=== PATIENT | male | born 1995 | race Caucasian/White ===

== ENCOUNTER → 2017-05-05 | Outpatient (REF) ==
[2016-03-06 04:55] VITALS: BP 115/62
[~2017-05-05] MED LIST: CEPHALEXIN250 MG/5 M PO; CHEWABLE MULTI1 EACH PO; LEVOTHYROXIN0.112 MG PO; PYRIDIUM100 M1 PO; SYNTHROID0.125 MG/T PO; VITAMIN D32000 UNIT PO
== END ==
LOC: LAB 07:35
DX: Q90.9 Down syndrome, unspecified (principal)

== ENCOUNTER 2019-08-21 10:06 | Outpatient (RCR) | payer MEDICARE ==
[2016-03-06 04:55] VITALS: BP 115/62
== END 2019-11-19 | disposition still patient (30) ==
LOC: SPEECH
DX: F80.9 Developmental disorder of speech and language, unspecified (principal)

== ENCOUNTER 2020-06-11 11:06 | Outpatient (RCR) | payer MEDICARE, BC ==
[2016-03-06 04:55] VITALS: BP 115/62
== END 2020-06-11 12:00 ==
LOC: PT 11:06
DX: Z02.1 Encounter for pre-employment examination (principal); Z20.828 Contact with and (suspected) exposure to other viral communicable diseases

== ENCOUNTER 2021-12-27 22:29 | Emergency (ER) | payer MEDICARE, BC, MEDICAID ==
[~2021-12-27] VITALS: Wt 75.0 kg
[2021-12-27] MEDS ORDERED: ESCITALOPRAM10 MG PO (22:42)
[2021-12-27] MEDS ORDERED: LEVOTHYROXINE125 MCG PO (22:42)
[2021-12-27] MEDS ORDERED: NORCO 325 MG-51 TA1 PO (23:42)
[2021-12-27] MEDS ORDERED: HYDROXYZINE HCL25 M1 PO (23:42)
[2021-12-27] MEDS ORDERED: CEPHALEXIN250 MG/5 M PO (23:53)
[2021-12-28 00:10] VITALS: BP 142/78
== END 2021-12-28 00:10 | disposition home or self-care (01) ==
LOC: ED 22:29
DX: S61.302A Unspecified open wound of right middle finger with damage to nail, initial encounter (principal); Q90.9 Down syndrome, unspecified; R31.0 Gross hematuria; X58.XXXA Exposure to other specified factors, initial encounter; Y93.89 Activity, other specified
CPT/HCPCS: Q0177

== ENCOUNTER → 2022-02-03 | Outpatient (CLI) | payer MEDICARE, BC, MEDICAID ==
[~2022-02-03] MED LIST changes: +ESCITALOPRAM10 MG PO; +HYDROXYZINE HCL25 M1 PO; +LEVOTHYROXINE125 MCG PO; +NORCO 325 MG-51 TA1 PO
[2022-02-03 16:17] LABS: ALBUMIN 4.5 g/dL (3.5-5.0); POTASSIUM 4.6 mmol/L (3.5-5.1)
[2022-02-03 16:19] LABS: CALCIUM 10.2 mg/dL (8.3-10.5)
[2022-02-03 16:20] LABS: TOTAL PROTEIN 7.8 g/dL (6.4-8.3)
[2022-02-03 16:22] LABS: TOTAL BILIRUBIN 0.4 mg/dL (0.2-1.2)
[2022-02-03 16:44] LABS: BASO # 0.09 K/mm3 (0.02-0.10); EOS # 0.06 K/mm3 (0.04-0.40); EOS % 1.4 % (0.0-4.0); HEMATOCRIT 48.5 % (42.0-52.0); HEMOGLOBIN 16.8 g/dL (13.5-18.0); LYMPH# 1.25 K/mm3 (1.50-4.00); MEAN CELL VOLUME 94 fl (78-100); MEAN CORPUSCULAR HEMOGLOBIN 33 pg (27-31); MEAN CORPUSCULAR HGB CONC 35 g/dL (33-37); MEAN PLATELET VOLUME 9.2 fl (7.4-10.4); MONO # 0.52 K/mm3 (0.20-0.80); NEU # 2.19 K/mm3 (1.40-6.50); PLATELET COUNT 260 K/mm3 (130-400); RED BLOOD COUNT 5.16 M/mm3 (4.20-5.60); RED CELL DISTRIBUTION WIDTH 12.1 % (11.5-14.5); WHITE BLOOD COUNT 4.1 K/mm3 (4.8-10.8)
[2022-02-03 18:05] LABS: ERYTHROCYTE SEDIMENTATION RATE 7 mm/hr (0-15)
[2022-02-03 22:19] LABS: T3 FREE 2.4 pg/mL (1.7-3.7)
== END ==
LOC: LAB 15:47
PROVIDERS: Internal Medicine
DX: Q90.9 Down syndrome, unspecified (principal); E07.9 Disorder of thyroid, unspecified; K90.9 Intestinal malabsorption, unspecified; F42.9 Obsessive-compulsive disorder, unspecified; F91.9 Conduct disorder, unspecified; K21.9 Gastro-esophageal reflux disease without esophagitis

== ENCOUNTER → 2022-03-20 | Outpatient (CLI) | payer MEDICARE, BC, MEDICAID ==
[2022-03-20 17:12] LABS: POTASSIUM 3.8 mmol/L (3.5-5.1)
[2022-03-20 17:14] LABS: CALCIUM 9.2 mg/dL (8.3-10.5)
[2022-03-20 17:17] LABS: TOTAL BILIRUBIN 0.5 mg/dL (0.2-1.2)
== END ==
LOC: LAB 16:03
PROVIDERS: Internal Medicine
DX: Q90.9 Down syndrome, unspecified (principal); R51.9 Headache, unspecified

== ENCOUNTER → 2022-04-10 | Outpatient (CLI) | payer MEDICARE, BC, MEDICAID | LOC: RAD 16:36 | DX: Q90.9 Down syndrome, unspecified (principal) ==

== ENCOUNTER 2022-05-14 13:55 | Outpatient (RCR) | payer MEDICARE, BC, MEDICAID | END 2022-06-03 | disposition home or self-care (01) | LOC: PT | DX: M62.81 Muscle weakness (generalized) (principal) ==

== ENCOUNTER → 2022-06-06 | Outpatient (CLI) | payer MEDICARE, BC, MEDICAID | LOC: LAB 11:03 | DX: R19.7 Diarrhea, unspecified (principal); B34.9 Viral infection, unspecified; R30.9 Painful micturition, unspecified; Z20.822 Contact with and (suspected) exposure to COVID-19 ==

== ENCOUNTER → 2022-06-23 | Outpatient (CLI) | payer MEDICARE, BC, MEDICAID | LOC: LAB 11:59 | DX: J01.90 Acute sinusitis, unspecified (principal); H10.33 Unspecified acute conjunctivitis, bilateral; Z20.822 Contact with and (suspected) exposure to COVID-19 ==

== ENCOUNTER → 2022-08-25 | Outpatient (CLI) | payer MEDICARE, BC, MEDICAID ==
[2022-08-25 15:47] LABS: BASO # 0.05 K/mm3 (0.02-0.10); EOS # 0.06 K/mm3 (0.04-0.40); EOS % 1.8 % (0.0-4.0); HEMATOCRIT 46.7 % (42.0-52.0); HEMOGLOBIN 15.7 g/dL (13.5-18.0); LYMPH# 1.05 K/mm3 (1.50-4.00); MEAN CELL VOLUME 95 fl (78-100); MEAN CORPUSCULAR HEMOGLOBIN 32 pg (27-31); MEAN CORPUSCULAR HGB CONC 34 g/dL (33-37); MEAN PLATELET VOLUME 9.4 fl (7.4-10.4); MONO # 0.38 K/mm3 (0.20-0.80); NEU # 1.83 K/mm3 (1.40-6.50); PLATELET COUNT 216 K/mm3 (130-400); RED BLOOD COUNT 4.92 M/mm3 (4.20-5.60); WHITE BLOOD COUNT 3.4 K/mm3 (4.8-10.8)
[2022-08-25 15:52] LABS: POTASSIUM 3.9 mmol/L (3.5-5.1)
[2022-08-25 15:53] LABS: ALBUMIN 4.2 g/dL (3.5-5.0)
[2022-08-25 15:54] LABS: CALCIUM 9.4 mg/dL (8.3-10.5)
[2022-08-25 15:55] LABS: TOTAL PROTEIN 7.3 g/dL (6.4-8.3)
[2022-08-25 15:57] LABS: TOTAL BILIRUBIN 0.5 mg/dL (0.2-1.2)
[2022-08-25 21:35] LABS: LUTENIZING HORMONE 2.7 mIU/mL (0.6-12.1); PROLACTIN AMS 58.7 ng/mL (3.5-19.4)
== END ==
LOC: LAB 15:18
PROVIDERS: Internal Medicine
DX: K90.9 Intestinal malabsorption, unspecified (principal); E55.9 Vitamin D deficiency, unspecified; F52.21 Male erectile disorder; E78.2 Mixed hyperlipidemia; E07.9 Disorder of thyroid, unspecified

== ENCOUNTER → 2022-10-07 | Outpatient (CLI) | payer MEDICARE, BC, MEDICAID ==
[~2022-10-07] MED LIST changes: +AMOXICILLIN AND1 TA2 PO; +CLONAZEPAM0.5 M1 PO; +OMEPRAZOLE40 MG PO
== END ==
LOC: LAB 11:24
DX: R30.9 Painful micturition, unspecified (principal)

== ENCOUNTER → 2022-10-30 | Outpatient (CLI) | payer MEDICARE, BC, MEDICAID ==
[2022-10-30 15:48] LABS: URINE APPEARANCE CLEAR; URINE COLOR YELLOW
[2022-10-30 15:49] LABS: URINE BILIRUBIN NEGATIVE (NEGATIVE); URINE BLOOD NEGATIVE (NEGATIVE); URINE GLUCOSE NEGATIVE (NEGATIVE); URINE KETONE NEGATIVE (NEGATIVE); URINE LEUKOCYTE ESTERASE NEGATIVE (NEGATIVE); URINE NITRATE NEGATIVE (NEGATIVE); URINE PROTEIN(semi-quant) NEGATIVE (NEGATIVE); URINE UROBILINOGEN NORMAL (NORMAL); URINE WBC 0-1 /hpf (0-3)
== END ==
LOC: LAB 15:25
PROVIDERS: Internal Medicine
DX: N39.0 Urinary tract infection, site not specified (principal)

== ENCOUNTER 2023-10-25 08:12 | Emergency (ER) | payer MEDICARE, MEDICAID ==
[~2023-10-25] VITALS: Ht 157.5 cm; Wt 73.6 kg
[2023-10-25 08:55] VITALS: BP 129/79
== END 2023-10-25 10:35 | disposition home or self-care (01) ==
LOC: ED 08:12
DX: R45.6 Violent behavior (principal)

== ENCOUNTER → 2023-11-10 | Outpatient (CLI) | payer MEDICARE, MEDICAID ==
[2023-11-10 12:30] LABS: URINE APPEARANCE CLEAR (CLEAR); URINE COLOR YELLOW (YELLOW)
[2023-11-10 12:32] LABS: PH-URINE 6.5 (5.0 - 8.0); URINE BILIRUBIN NEGATIVE (NEGATIVE); URINE BLOOD NEGATIVE (NEGATIVE); URINE GLUCOSE NEGATIVE (NEGATIVE); URINE KETONE NEGATIVE (NEGATIVE); URINE LEUKOCYTE ESTERASE NEGATIVE (NEGATIVE); URINE NITRATE NEGATIVE (NEGATIVE); URINE PROTEIN(semi-quant) NEGATIVE (NEGATIVE); URINE WBC 0-1 /hpf (0-3)
== END ==
LOC: LAB 11:55
PROVIDERS: Nurse Practitioner Family
DX: N48.89 Other specified disorders of penis (principal)

== ENCOUNTER → 2023-11-30 | Outpatient (CLI) | payer MEDICARE | LOC: LAB 17:03 | DX: N39.0 Urinary tract infection, site not specified (principal) ==

== ENCOUNTER → 2023-11-30 | Outpatient (CLI) | payer MEDICARE ==
[2023-11-30 17:34] LABS: CALCIUM 9.5 mg/dL (8.3-10.5)
== END ==
LOC: LAB 17:15
PROVIDERS: Internal Medicine
DX: E07.9 Disorder of thyroid, unspecified (principal)

== ENCOUNTER → 2023-12-01 | Outpatient (CLI) | payer MEDICARE | LOC: RAD 11:19 | DX: N13.30 Unspecified hydronephrosis (principal); N39.0 Urinary tract infection, site not specified ==

== ENCOUNTER → 2024-09-20 | Outpatient (CLI) | payer MEDICARE, MEDICAID ==
[2024-09-20 17:25] LABS: BASO # 0.04 K/mm3 (0.02-0.10); EOS # 0.06 K/mm3 (0.04-0.40); EOS % 1.4 % (0.0-4.0); HEMATOCRIT 47.5 % (42.0-52.0); HEMOGLOBIN 16.4 g/dL (13.5-18.0); LYMPH# 1.16 K/mm3 (1.50-4.00); MEAN CELL VOLUME 93 fl (78-100); MEAN CORPUSCULAR HEMOGLOBIN 32 pg (27-31); MEAN CORPUSCULAR HGB CONC 35 g/dL (33-37); MEAN PLATELET VOLUME 9.5 fl (7.4-10.4); MONO # 0.46 K/mm3 (0.20-0.80); NEU # 2.53 K/mm3 (1.40-6.50); PLATELET COUNT 246 K/mm3 (130-400); RED BLOOD COUNT 5.11 M/mm3 (4.20-5.60); RED CELL DISTRIBUTION WIDTH 12.2 % (11.5-14.5); WHITE BLOOD COUNT 4.3 K/mm3 (4.8-10.8)
[2024-09-20 17:32] LABS: ALBUMIN 4.2 g/dL (3.5-5.0)
[2024-09-20 17:33] LABS: CALCIUM 9.6 mg/dL (8.3-10.5)
[2024-09-20 17:35] LABS: TOTAL PROTEIN 7.6 g/dL (6.4-8.3)
[2024-09-20 17:37] LABS: TOTAL BILIRUBIN 0.3 mg/dL (0.2-1.2)
[2024-09-20 17:42] LABS: MAGNESIUM 2.07 mg/dL (1.60-2.60)
[2024-09-21 16:35] LABS: FOLATE (FOLIC ACID) 15.1 ng/mL (2.0-20.0)
== END ==
LOC: LAB 16:55
PROVIDERS: Internal Medicine
DX: K90.9 Intestinal malabsorption, unspecified (principal); F42.9 Obsessive-compulsive disorder, unspecified; E78.2 Mixed hyperlipidemia; R79.89 Other specified abnormal findings of blood chemistry; E03.1 Congenital hypothyroidism without goiter

== ENCOUNTER 2024-10-31 10:59 | Emergency (ER) | payer MEDICARE, MEDICAID ==
[~2024-10-31] VITALS: Wt 60.5 kg
[2024-10-31 11:56] LABS: HEMATOCRIT 44.1 % (42.0-52.0); MEAN CELL VOLUME 93 fl (78-100); MEAN CORPUSCULAR HEMOGLOBIN 32 pg (27-31); MEAN CORPUSCULAR HGB CONC 34 g/dL (33-37); PLATELET COUNT 169 K/mm3 (130-400); RED BLOOD COUNT 4.75 M/mm3 (4.20-5.60); RED CELL DISTRIBUTION WIDTH 12.7 % (11.5-14.5); WHITE BLOOD COUNT 4.5 K/mm3 (4.8-10.8)
[2024-10-31 11:57] LABS: ALBUMIN 3.6 g/dL (3.5-5.0)
[2024-10-31 12:00] LABS: TOTAL PROTEIN 7.4 g/dL (6.4-8.3)
[2024-10-31] MEDS ORDERED: Albuterol/Ipratropium 3 MG-0.5 MG/3 ML Neb Soln IH ONE (12:00)
[2024-10-31 12:02] LABS: TOTAL BILIRUBIN 0.5 mg/dL (0.2-1.2)
[2024-10-31] MEDS ORDERED: NS 1,000 ML IV SCH (12:15)
[2024-10-31] MEDS ORDERED: cefTRIAXone 1 G in Water For Injection,Sterile 10 ML IV ONE (12:15)
[2024-10-31 12:23] LABS: LYMPHOCYTE 12 % (20-51); MONOCYTE 4 % (3-10); NEUTROPHILS 84 % (42-75)
[2024-10-31] MEDS ORDERED: CLONAZEPAM0.5 M1 PO (13:19)
[2024-10-31] MEDS ORDERED: BUSPIRONE5 MG PO (13:21)
[2024-10-31] MEDS ORDERED: FLUTICASON0.05 MG/Ac NS (13:21)
[2024-10-31] MEDS ORDERED: PEG335017 GM/Dose PO (13:21)
[2024-10-31] MEDS ORDERED: LEVOTHYROXIN0.137 MG PO (13:21)
[2024-10-31] MEDS ORDERED: GOOD NEIGHBOR L10 MG PO (13:22)
[2024-10-31] MEDS ORDERED: ACETAMINOPHEN325 M1 PO (13:23)
[2024-10-31] MEDS ORDERED: BENADRYL ALLERG50 MG PO (13:24)
[2024-10-31] MEDS ORDERED: MELATONIN10 M2 PO (13:27)
[2024-10-31] MEDS ORDERED: IBU-200200 M1 PO (13:28)
[2024-10-31 13:33] VITALS: BP 112/68
== END 2024-10-31 13:51 | disposition other institution (70) ==
LOC: ED 10:59
PROVIDERS: Nurse Practitioner
DX: J18.9 Pneumonia, unspecified organism (principal)
CPT/HCPCS: J0696; J7030

== ENCOUNTER 2024-10-31 12:36 | Inpatient (IN) | payer MEDICARE, MEDICAID ==
[~2024-10-31] VITALS: Wt 60.2 kg
[2024-10-31 13:10] VITALS: BP 131/84
[2024-10-31] MEDS ORDERED: Azithromycin 500 MG in NS 250 ML IV SCH (13:15)
[2024-10-31] MEDS ORDERED: Albuterol/Ipratropium 3 MG-0.5 MG/3 ML Neb Soln IH PRN (13:15)
[2024-10-31] MEDS ORDERED: CLONAZEPAM0.5 M1 PO (13:19)
[2024-10-31] MEDS ORDERED: LEVOTHYROXIN0.137 MG PO (13:21)
[2024-10-31] MEDS ORDERED: BUSPIRONE5 MG PO (13:21)
[2024-10-31] MEDS ORDERED: PEG335017 GM/Dose PO (13:21)
[2024-10-31] MEDS ORDERED: FLUTICASON0.05 MG/Ac NS (13:21)
[2024-10-31] MEDS ORDERED: GOOD NEIGHBOR L10 MG PO (13:22)
[2024-10-31] MEDS ORDERED: ACETAMINOPHEN325 M1 PO (13:23)
[2024-10-31] MEDS ORDERED: BENADRYL ALLERG50 MG PO (13:24)
[2024-10-31] MEDS ORDERED: MELATONIN10 M2 PO (13:27)
[2024-10-31] MEDS ORDERED: IBU-200200 M1 PO (13:28)
[2024-10-31] MEDS ORDERED: Acetaminophen 325 MG TAB PO PRN ×2 (13:30→13:45)
[2024-10-31] MEDS ORDERED: Ondansetron 4 MG/2 ML VIAL IV PRN (13:30)
[2024-10-31] MEDS ORDERED: NS 1,000 ML IV SCH (13:45)
[2024-10-31] MEDS ORDERED: Ibuprofen 200 MG TAB PO PRN (13:45)
[2024-10-31] MEDS ORDERED: clonazePAM 0.5 MG TABLET PO PRN ×2 (13:45→21:00)
[2024-10-31] MEDS ORDERED: diphenhydrAMINE 25 MG CAP PO PRN (13:45)
[2024-10-31 14:30] VITALS: BP 131/84
[2024-10-31] MEDS ORDERED: Albuterol/Ipratropium 3 MG-0.5 MG/3 ML Neb Soln IH SCH (18:00)
[2024-10-31 18:31] VITALS: BP 190/70
[2024-10-31 19:00] VITALS: BP 130/72
[2024-10-31] MEDS ORDERED: Melatonin 3 MG TAB PO SCH (20:00)
[2024-10-31] MEDS ORDERED: busPIRone 5 MG TAB PO SCH (21:00)
[2024-10-31 23:00] VITALS: BP 107/69
[2024-11-01 03:00] VITALS: BP 106/66
[2024-11-01 07:15] VITALS: BP 129/74
[2024-11-01 07:16] LABS: HEMATOCRIT 41.4 % (42.0-52.0); HEMOGLOBIN 13.9 g/dL (13.5-18.0); MEAN CELL VOLUME 95 fl (78-100); MEAN CORPUSCULAR HEMOGLOBIN 32 pg (27-31); MEAN CORPUSCULAR HGB CONC 34 g/dL (33-37); MEAN PLATELET VOLUME 10.9 fl (7.4-10.4); PLATELET COUNT 165 K/mm3 (130-400); RED BLOOD COUNT 4.37 M/mm3 (4.20-5.60); WHITE BLOOD COUNT 3.1 K/mm3 (4.8-10.8)
[2024-11-01 07:20] LABS: CALCIUM 8.4 mg/dL (8.3-10.5)
[2024-11-01 07:55] LABS: LYMPHOCYTE 16 % (20-51); MONOCYTE 8 % (3-10); NEUTROPHILS 76 % (42-75)
[2024-11-01] MEDS ORDERED: Multivitamin TAB PO SCH (09:00)
[2024-11-01] MEDS ORDERED: Fluticasone Nasal 50 MCG/Spray 16 GM BOTTLE NS SCH (09:00)
[2024-11-01] MEDS ORDERED: Loratadine 10 MG TAB PO SCH (09:00)
[2024-11-01] MEDS ORDERED: Cholecalciferol (Vit D3) 25 MCG (1,000 Units) TAB PO SCH (09:00)
[2024-11-01 11:20] VITALS: BP 117/68
[2024-11-01] MEDS ORDERED: cefTRIAXone 1 G in Water For Injection,Sterile 10 ML IV SCH (12:00)
[2024-11-01] MEDS ORDERED: Azithromycin 250 MG TAB PO SCH (13:14)
[2024-11-01 15:25] VITALS: BP 125/71
[2024-11-01 22:45] VITALS: BP 115/71
[2024-11-02 03:05] VITALS: BP 132/87
[2024-11-02 05:47] LABS: HEMOGLOBIN 14.2 g/dL (13.5-18.0); MEAN CELL VOLUME 94 fl (78-100); MEAN CORPUSCULAR HEMOGLOBIN 32 pg (27-31); MEAN CORPUSCULAR HGB CONC 34 g/dL (33-37); MEAN PLATELET VOLUME 10.8 fl (7.4-10.4); PLATELET COUNT 210 K/mm3 (130-400); RED BLOOD COUNT 4.48 M/mm3 (4.20-5.60); WHITE BLOOD COUNT 4.1 K/mm3 (4.8-10.8)
[2024-11-02 05:57] LABS: ALBUMIN 3.3 g/dL (3.5-5.0)
[2024-11-02 05:59] LABS: CALCIUM 8.9 mg/dL (8.3-10.5)
[2024-11-02 06:00] LABS: TOTAL PROTEIN 6.8 g/dL (6.4-8.3)
[2024-11-02 06:02] LABS: TOTAL BILIRUBIN 0.4 mg/dL (0.2-1.2)
[2024-11-02 06:20] LABS: BAND 9 % (0-10); NEUTROPHILS 81 % (42-75)
[2024-11-02 06:21] LABS: LYMPHOCYTE 4 % (20-51); MONOCYTE 6 % (3-10)
[2024-11-02 07:15] VITALS: BP 148/80
[2024-11-02] MEDS ORDERED: Piperacillin/Tazobactam Sodium 4.5 GM in NS 100 ML IV ONE (07:30)
[2024-11-02] MEDS ORDERED: Magnesium Oxide 400 MG TAB PO SCH (08:10)
[2024-11-02] MEDS ORDERED: NS IV SCH (12:00)
[2024-11-02] MEDS ORDERED: HYDROCORTISONE SOD SUCCINATE IV SCH (12:00)
[2024-11-02] MEDS ORDERED: Piperacillin/Tazobactam Sodium 3.375 GM in NS 100 ML IV SCH (16:00)
== END 2024-11-02 14:08 | DRG 871 ==
LOC: MED/SURG 12:36
PROVIDERS: Family Medicine; ADMIT Nurse Practitioner
DX: A41.9 Sepsis, unspecified organism (principal); J12.9 Viral pneumonia, unspecified; J80 Acute respiratory distress syndrome; R19.7 Diarrhea, unspecified; E86.0 Dehydration; E87.6 Hypokalemia; K21.9 Gastro-esophageal reflux disease without esophagitis; Q90.9 Down syndrome, unspecified; F42.9 Obsessive-compulsive disorder, unspecified
CPT/HCPCS: J0456; J0696; J1720; J2405; J2543; J3370; J7030; J7050; J7120

== ENCOUNTER → 2024-12-19 | Outpatient (CLI) | payer MEDICARE, MEDICAID ==
[~2024-12-19] MED LIST changes: +ACETAMINOPHEN325 M1 PO; +BENADRYL ALLERG50 MG PO; +BUSPIRONE5 MG PO; +FLUTICASON0.05 MG/Ac NS; +GOOD NEIGHBOR L10 MG PO; +IBU-200200 M1 PO; +LEVOTHYROXIN0.137 MG PO; +MELATONIN10 M2 PO; +PEG335017 GM/Dose PO
[2024-12-19 11:34] LABS: BASO # 0.03 K/mm3 (0.02-0.10); EOS # 0.02 K/mm3 (0.04-0.40); EOS % 0.6 % (0.0-4.0); HEMATOCRIT 48.6 % (42.0-52.0); HEMOGLOBIN 16.2 g/dL (13.5-18.0); LYMPH# 1.36 K/mm3 (1.50-4.00); MEAN CELL VOLUME 96 fl (78-100); MEAN CORPUSCULAR HEMOGLOBIN 32 pg (27-31); MEAN CORPUSCULAR HGB CONC 33 g/dL (33-37); MEAN PLATELET VOLUME 9.7 fl (7.4-10.4); MONO # 0.48 K/mm3 (0.20-0.80); NEU # 1.62 K/mm3 (1.40-6.50); PLATELET COUNT 247 K/mm3 (130-400); RED BLOOD COUNT 5.09 M/mm3 (4.20-5.60); RED CELL DISTRIBUTION WIDTH 13.6 % (11.5-14.5); WHITE BLOOD COUNT 3.5 K/mm3 (4.8-10.8)
[2024-12-19 11:42] LABS: ALBUMIN 4.1 g/dL (3.5-5.0)
[2024-12-19 11:43] LABS: CALCIUM 9.4 mg/dL (8.3-10.5)
[2024-12-19 11:44] LABS: TOTAL PROTEIN 7.6 g/dL (6.4-8.3)
[2024-12-19 11:46] LABS: TOTAL BILIRUBIN 0.5 mg/dL (0.2-1.2)
[2024-12-19 11:51] LABS: MAGNESIUM 1.89 mg/dL (1.60-2.60)
== END ==
LOC: LAB 11:18
PROVIDERS: Internal Medicine
DX: F42.9 Obsessive-compulsive disorder, unspecified (principal); E03.1 Congenital hypothyroidism without goiter